=== PATIENT | female | born 1975 | race Caucasian/White ===

== ENCOUNTER → 2016-10-19 | Outpatient (CLI) | payer BC ==
--- NOTE | 2016-10-19 14:13 | US ---
EXAMINATION TYPE: US pelvis complete transvag DATE OF EXAM: 10/19/2016 COMPARISON: NONE CLINICAL HISTORY: N92.1 MENORRHAGIA. Patient has blood clots the week following her cycles, ongoing f or years TECHNIQUE: TA and TV Date of LMP: 10/08/2016 EXAM MEASUREMENTS: Uterus: 7.0 x 5.2 x 5.5 cm Endometrial Stripe: 1.0 cm Right Ovary: 2.9 x 2.3 x 2.2 cm Left Ovary: 2.4 x 2.6 x 2.0 cm 1. Uterus: Retroverted nabothian cyst within cervix 2. Endometrium: wnl 3. Right Ovary: wnl 4. Left Ovary: 2.3cm simple appearing follicle with mild free fluid adjacent to left ovary. 5. Bilateral Adnexa: wnl 6. Posterior cul-de-sac: wnl IMPRESSION: 1. Unremarkable endometrium, uterus, and right ovary. 2. Dominant anechoic left ovarian follicle with small volume paraovarian free fluid, which may relate to a recently ruptured ovarian cyst.
== END | disposition home or self-care (01) ==
LOC: RADUSWWP 13:29
PROVIDERS: ATTEND Obstetrics & Gynecology
DX: N92.1 Excessive and frequent menstruation with irregular cycle (principal)
CPT/HCPCS: 76830; 76856

== ENCOUNTER → 2016-10-23 | Outpatient (CLI) | payer BC | END | disposition home or self-care (01) | LOC: LABWHC1 08:28 | PROVIDERS: ATTEND Obstetrics & Gynecology | DX: Z13.220 Encounter for screening for lipoid disorders (principal); Z13.1 Encounter for screening for diabetes mellitus | CPT/HCPCS: 36415; 80061; 82947; 84439; 84443 ==

== ENCOUNTER → 2016-10-26 | Outpatient (CLI) | payer BC ==
--- NOTE | 2016-10-26 10:28 | MM ---
Reason for exam: screening (asymptomatic). Baseline mammogram. History: Family history of breast cancer in mother at age 40, breast cancer in 2 aunts, and breast cancer in grandmother at age 20. Physical Findings: Nurse did not find any significant physical abnormalities on exam. MG Screening Mammo w CAD Bilateral CC and MLO view(s) were taken. The breast tissue is heterogeneously dense. This may lower the sensitivity of mammography. No suspicious abnormality. These results were verbally communicated with the patient and result sheet given to the patient on 10/26/16. ASSESSMENT: Negative, BI-RAD 1 RECOMMENDATION: Routine screening mammogram of both breasts in 1 year.
== END | disposition home or self-care (01) ==
LOC: RADMAMWWP 09:41
PROVIDERS: ATTEND Obstetrics & Gynecology
DX: Z12.31 Encounter for screening mammogram for malignant neoplasm of breast (principal)

== ENCOUNTER → 2020-12-09 | Outpatient (CLI) | payer BC ==
[2020-12-09 16:48] LABS: Basophils # (A) 0.1 k/uL (0-0.2); Basophils % (A) 1 %; Eosinophils # (A) 0.1 k/uL (0-0.7); Eosinophils % (A) 2 %; HCT 40.8 % (34.0-46.0); HGB 13.7 gm/dL (11.4-16.0); Lymphocytes # (A) 2.4 k/uL (1.0-4.8); Lymphocytes % (A) 34 %; MCH 31.2 pg (25.0-35.0); MCHC 33.5 g/dL (31.0-37.0); Monocytes # (A) 0.4 k/uL (0-1.0); Monocytes % (A) 5 %; Neutrophils # (A) 4.2 k/uL (1.3-7.7); Neutrophils % (A) 58 %; Platelet Count 295 k/uL (150-450); RBC 4.39 m/uL (3.80-5.40); RDW 12.2 % (11.5-15.5); WBC 7.3 k/uL (3.8-10.6)
== END | disposition home or self-care (01) ==
LOC: LABPAT 16:08
PROVIDERS: ATTEND Obstetrics & Gynecology
DX: Z01.812 Encounter for preprocedural laboratory examination (principal)
CPT/HCPCS: 85025

== ENCOUNTER 2020-12-16 11:11 | Day surgery (SDC) | payer BC ==
[2020-12-14 16:14] VITALS: BMI 28.3
--- NOTE | 2020-12-15 16:57 | P.HPOB ---
History of Present Illness H&P Date: 12/15/20 Chief Complaint: Menorrhagia with regular cycle This is a 45 y.o. female, 3, para 2, who presents for dilatation and curettage with hysteroscopy and Novasure endometrial ablation due to menorrhagia with regular cycle. Her menses are occurring every 25-26 days and lasting 5-7 days heavy followed by a week of spotting. She also has severe cramping the 1st day or 2 of her cycle. Her ultrasound shows uterus measuring 7.6 x 4.8 cm with an endometrial thickness of 0.9 cm. There was also a possible 0.9 cm fibroid. Both ovaries appeared normal with small simple cysts. OB Hx: . History of 2 sections and 1 miscarriage. Poem Writer Hx: History of trichomonas, treated in past. History of tubal ligation. Social Hx: . Works as a [employer] for [employer]. Review of Systems Constitutional: Reports night sweats, Denies chills, Denies fever Eyes: denies blurred vision, denies pain Ears, nose, mouth and throat: Denies sore throat Breasts: bilateral: pain (nipple pain since last delivery) Cardiovascular: Denies chest pain, Denies shortness of breath Respiratory: Denies cough Gastrointestinal: Reports heartburn, Denies abdominal pain, Denies diarrhea, Denies nausea, Denies vomiting Genitourinary: Reports dysmenorrhea, Reports menorrhagia Menstruation: Reports menses 8 or > days, Reports period heavy Musculoskeletal: Reports low back pain, Reports myalgias Integumentary: Denies pruritus, Denies rash Neurological: Reports headaches (with menses), Denies numbness, Denies weakness Psychiatric: Reports anxiety, Reports mood swings Endocrine: Reports flushing Past Medical History Past Medical History: GERD/Reflux, Musculoskeletal Disorder Additional Past Medical History / Comment(s): Hx Scoliosis. History of Any Multi-Drug Resistant Organisms: None Reported Past Surgical History: Back Surgery, Section Additional Past Surgical History / Comment(s): Section X2. Fusion - 2 Joaquin rods 1990. Past Anesthesia/Blood Transfusion Reactions: No Reported Reaction, Motion Sickness Past Psychological History: No Psychological Hx Reported Smoking Status: Former smoker Past Alcohol Use History: Occasional Additional Past Alcohol Use History / Comment(s): Quit smoking in 2003. Past Drug Use History: None Reported - Past Family History Father Family Medical History: CVA/TIA Medications and Allergies Home Medications Medication Instructions Recorded Confirmed Type No Known Home Medications 12/14/20 12/14/20 History Allergies Allergy/AdvReac Type Severity Reaction Status Date / Time metronidazole [From Flagyl] Allergy Thrush Verified 12/14/20 16:17 Penicillins Allergy Rash/Hives Verified 12/14/20 16:17 Exam Osteopathic Statement: *. No significant issues noted on an osteopathic structural exam other than those noted in the History and Physical/Consult. HEENT: within normal limits Heart: regular rate and rhythm Lungs: clear to auscultation bilaterally Abdomen: soft, non-tender Pelvic: uterus small anteverted, sl. tender with no adnexal masses. Mild tenderness bilaterally. Extremities: neg. Adrian's Assessment and Plan (1) Menorrhagia with regular cycle Status: Acute Code(s): N92.0 - EXCESSIVE AND FREQUENT MENSTRUATION WITH REGULAR CYCLE SNOMED Code(s): 399531992 Plan: Proceed with dilatation and curettage with hysteroscopy and Novasure endometrial ablation. I have discussed the risks, benefits, and alternative therapies for the above- mentioned procedure and for both sedation/anesthesia as well as necessary blood products administration, if indicated, as they pertain to this patient. The patient has indicated her understanding and acceptance of the risks and procedures discussed.
[~2020-12-16 11:11] MED LIST: DEXAMETHASONE SOD PHOSPHATE 4 MG/ML 1 ML VIAL IV ONE; HYDROmorphone 0.5 MG/0.5 ML SYRINGE IVP PRN; LACTATED RINGERS 1,000 ML IV SCH; MIDAZOLAM 2 MG/2 ML VIAL IV PRN; ONDANSETRON 4 MG/2 ML VIAL IVP ONE; Pre Op ABX Message 1 EACH MISC MISCELLANE ONE; SCOPOLAMINE 1.5MG/72HR PATCH TRANSDERM ONE
[2020-12-16 11:40] VITALS: RESP 16
[2020-12-16] MEDS ORDERED: LIDOCAINE 1% INJ 10MG/ML (20 ML MDV) ONE (12:35)
[2020-12-16] MEDS ORDERED: MIDAZOLAM 2 MG/2 ML VIAL ONE (12:35)
[2020-12-16] MEDS ORDERED: fentaNYL (PF) 50 MCG/ML 2 ML AMP ONE (12:35)
[2020-12-16] MEDS ORDERED: PROPOFOL 10 MG/ML 20 ML VIAL IV ONE (12:35)
--- NOTE | 2020-12-16 13:02 | P.OP ---
Date of Procedure: 12/16/20 Preoperative Diagnosis: Menorrhagia with regular cycle Postoperative Diagnosis: Same Procedure(s) Performed: Dilation and curettage with hysteroscopy and NovaSure endometrial ablation Anesthesia: CALEB Surgeon: Vickie Javier Estimated Blood Loss (ml): 10 Pathology: other (Endometrial curettings) Condition: stable Disposition: same day Indications for Procedure: This is a 45 y.o. female, 3, para 2, who presents for dilatation and curettage with hysteroscopy and Novasure endometrial ablation due to menorrhagia with regular cycle. Her menses are occurring every 25-26 days and lasting 5-7 days heavy followed by a week of spotting. She also has severe cramping the 1st day or 2 of her cycle. Her ultrasound shows uterus measuring 7.6 x 4.8 cm with an endometrial thickness of 0.9 cm. There was also a possible 0.9 cm fibroid. Both ovaries appeared normal with small simple cysts. Operative Findings: Uterus is retroverted and sounded to 7-1/2 cm. Cervix is sounded to 3 cm. No adnexal masses are palpated. Upon hysteroscopy, some bloody discharge is noted in both tubal ostia are visualized. Upon curetting, irregular contour is noted consistent with possible submucosal fibroids. Moderate amount of endometrial curettings are obtained. Description of Procedure: The patient is taken to the operating room. She is placed in the dorsal lithotomy position after general anesthesia was given. She is prepped and draped in the normal sterile fashion. Bladder is drained with a catheter and then removed. Pelvic exam is performed under anesthesia. Uterus is found to be retroverted with no adnexal masses. She is placed in slight Trendelenburg position. A right angle retractor is used to visualize the cervix. The anterior lip of the cervix is grasped with a single-tooth tenaculum. Cervix is sounded to 3 cm. Uterus is sounded to 7 cm. Cervix is gently dilated with Duvall dilators until a hysteroscope could be passed. Hysteroscopy is performed using normal saline. The above noted findings are noted. Next a polyp forceps is introduced. A moderate amount of tissue was obtained. Next medium-sized size sharp curette was placed. A moderate amount of endometrial curettings were obtained. Next NovaSure array was inserted into the endometrial cavity. Length was set at 4.5 cm and width was determined to be 3.3 cm. Next cavity assessment was completed and passed on the first try. Next NovaSure array was fired at 82 W for 69 seconds. Next the array was removed, inspected and then discarded. Next the hysteroscope was reinserted. Uniform charring was noted. Pictures were taken. Hysteroscope was removed. Single-tooth tenaculum was removed from the anterior lip of the cervix. Minimal bleeding was noted. All other instruments removed from the vagina. Sponge counts were correct. Patient is taken to recovery room in stable condition.
[2020-12-16 13:20] VITALS: TEMP 97.1
[2020-12-16 14:04] VITALS: BP 111/78; PULSE 60
== END 2020-12-16 14:37 | disposition home or self-care (01) ==
LOC: OR 11:11
PROVIDERS: ATTEND Obstetrics & Gynecology
DX: N92.0 Excessive and frequent menstruation with regular cycle (principal); K21.9 Gastro-esophageal reflux disease without esophagitis; Z87.891 Personal history of nicotine dependence
CPT/HCPCS: 58563; 81025; 88305; J2250; J1100; J2405; J2001; J3010; J2704

== ENCOUNTER → 2020-12-30 | Outpatient (CLI) | payer BC ==
--- NOTE | 2021-01-02 13:52 | MM ---
Reason for exam: screening (asymptomatic). Last mammogram was performed 4 years and 2 months ago. History: Family history of breast cancer in mother at age 40, breast cancer in 2 aunts, and breast cancer in grandmother at age 20. Physical Findings: A clinical breast exam by your physician is recommended on an annual basis and results should be correlated with mammographic findings. MG 3D Screening Mammo W/Cad Bilateral CC and MLO view(s) were taken. Prior study comparison: October 26, 2016, bilateral MG screening mammo w CAD. The breast tissue is heterogeneously dense. This may lower the sensitivity of mammography. 3.3cm oval, circumscribed mass/cyst 10 o'clock posterior right breast. Inferior right nodularity on 3D images. ASSESSMENT: Incomplete: need additional imaging evaluation, BI-RAD 0 RECOMMENDATION: Special view mammogram of the right breast. (3D) Ultrasound of both breasts. [facility] will attempt to contact patient to return for supplemental views and ultrasound.
== END | disposition home or self-care (01) ==
LOC: RADMAMWWP 14:35
PROVIDERS: ATTEND Obstetrics & Gynecology
DX: Z12.31 Encounter for screening mammogram for malignant neoplasm of breast (principal); Z80.3 Family history of malignant neoplasm of breast
CPT/HCPCS: 77063; 77067

== ENCOUNTER → 2021-01-13 | Outpatient (CLI) | payer BC ==
--- NOTE | 2021-01-13 10:49 | USB ---
EXAMINATION TYPE: US breast workup complete JOHN DATE OF EXAM: 01/13/2021 COMPARISON: Mammogram same date, 12/30/2020, 10/26/2016 CLINICAL HISTORY: R92.8 ABN MAMMO. Findings: Multiple simple cysts are identified in both breasts with the largest in the right breast measuring u p to 2.7 cm corresponding to the larger mass on mammogram. IMPRESSION: Simple cysts are noted in the bilateral breasts. BI-RADS 2, benign. Recommendation: Screening mammogram is recommended in December 2021.
--- NOTE | 2021-01-13 14:30 | MM ---
Reason for exam: additional evaluation requested from abnormal screening. Last mammogram was performed less than 1 month ago. History: Family history of breast cancer in mother at age 40, breast cancer in 2 aunts, and breast cancer in grandmother at age 20. Physical Findings: Nurse did not find any significant physical abnormalities on exam. MG 3D Work Up W/Cad RT LM and spot compression MLO view(s) were taken of the right breast. Prior study comparison: December 30, 2020, bilateral MG 3d screening mammo w/cad. October 26, 2016, bilateral MG screening mammo w CAD. The breast tissue is heterogeneously dense. This may lower the sensitivity of mammography. There is a large ovoid mass upper right breast and nodularity of the lower right breast. Bilateral ultrasound recommended, as per prior report. These results were verbally communicated with the patient and result sheet given to the patient on 01/13/21. ASSESSMENT: Incomplete: need additional imaging evaluation, BI-RAD 0 RECOMMENDATION: Ultrasound of both breasts. EDMUND
== END | disposition home or self-care (01) ==
LOC: RADMAMWWP 08:19
PROVIDERS: ATTEND Obstetrics & Gynecology
DX: N60.01 Solitary cyst of right breast (principal); N60.02 Solitary cyst of left breast; N63.10 Unspecified lump in the right breast, unspecified quadrant; Z80.3 Family history of malignant neoplasm of breast
CPT/HCPCS: 77061; 77065

== ENCOUNTER → 2023-01-30 | Outpatient (CLI) | payer BC ==
--- NOTE | 2023-01-31 08:16 | MM ---
Reason for Exam: Screening (asymptomatic). Last mammogram was performed 2 year(s) and 1 month(s) ago. Patient History: Menarche at age 13. First Full-Term at age 27. Perimenopausal. Maternal grandmother had breast cancer, age 20. Maternal aunt had breast cancer. Maternal aunt had breast cancer. Mother had breast cancer, age 40. Risk Values: Cristina 5 year model risk: 1.8%. NCI Lifetime model risk: 19.6%. Prior Study Comparison: 10/26/2016 Bilateral Screening Mammogram, [facility]. 12/30/2020 Bilateral Screening Mammogram, [facility]. 01/13/2021 Right Diagnostic Mammogram, [facility]. Tissue Density: The breast tissue is extremely dense which could obscure a lesion on mammography. Findings: Analyzed By CAD. Well-circumscribed mass at the 9 to 10:00 position left breast. Additional views and ultrasound recommended. No right-sided breast mass is seen. Benign calcifications noted. Overall Assessment: Incomplete: need additional imaging evaluation, BI-RAD 0 Management: Diagnostic Mammogram of the left breast. . Patient should continue monthly self-breast exams. A clinical breast exam by your physician is recommended on an annual basis. This exam should not preclude additional follow-up of suspicious palpable abnormalities. Note on Cristina scores and lifetime risk: 1. A Cristina score greater than 3% is considered moderate risk. If this is the case, consider specialist referral to assess eligibility for a risk reducing agent. 2. If overall lifetime risk for the development of breast cancer is 20% or higher, the patient may qualify for future screening with alternating mammogram and breast MRI. Electronically signed and approved by: Eduardo Hudson M.D. Radiologis
== END | disposition home or self-care (01) ==
LOC: RADMAMWWP 15:13
PROVIDERS: ATTEND Obstetrics & Gynecology
DX: Z12.31 Encounter for screening mammogram for malignant neoplasm of breast (principal); Z80.3 Family history of malignant neoplasm of breast
CPT/HCPCS: 77063; 77067

== ENCOUNTER → 2023-02-06 | Outpatient (CLI) | payer BC ==
--- NOTE | 2023-02-06 15:24 | USB ---
Reason for Exam: Additional evaluation requested from abnormal screening. Patient History: Menarche at age 13. First Full-Term at age 27. Perimenopausal. Maternal grandmother had breast cancer, age 20. Maternal aunt had breast cancer. Maternal aunt had breast cancer. Mother had breast cancer, age 40. Risk Values: Cristina 5 year model risk: 1.8%. NCI Lifetime model risk: 19.6%. Technique: Method: Targeted. Prior Study Comparison: 12/30/2020 Bilateral Screening Mammogram, [facility]. 01/13/2021 Right Diagnostic Mammogram, [facility]. 01/30/2023 Bilateral MG 3D screening mammo w/cad, [facility]. Findings: The whole breast of the left breast, the lateral section of the breast of the right breast, the axilla of both breasts and the retroareolar of both breasts were scanned. Right breast: At the 9:00 position 8 cm nipple is a 0.5 x 0.6 x 0.7 cm cyst with good through transmission smooth umanzor. Wall enhancement. This area appears to correlate with the right breast mammogram. There is an additional 1.6 x 1.2 x 1.5 cm cyst at the 10:00 position 2 cm from. Left breast: At the 12:00 position 2 cm from the nipple there is a 2.2 x 1.1 x 2.3 cm cyst. Correlation with mammographic findings is not evident. At the 1:00 position 8 cm is a 0.5 x 0.4 1.0 cm complex cystic area. This may correlate with the more posterior lesion on mammogram. At the 3:00 position 3 cm from nipple is a 0.9 x 1.4 x 0.7 cm area may correlate with the mammographic finding. At 7:00 position 3 cm from the nipple is a small simple appearing cyst. At the 9:00 position 5 cm from the nipple is a 1.7 x 1.3 x 1.6 cm simple appearing cyst. Overall Assessment: Probably benign, BI-RAD 3 Management: Diagnostic Mammogram of the left breast in 6 months. A clinical breast exam by your physician is recommended on an annual basis and results should be correlated with mammographic findings. This exam should not preclude additional follow-up of suspicious palpable abnormalities. Results were given to the patient verbally at the time of exam. Electronically signed and approved by: John Gonsales D.O. Radiologis
--- NOTE | 2023-02-12 14:54 | MM ---
Reason for Exam: Additional evaluation requested from abnormal screening. Last screening mammogram was performed less than 1 month ago. Patient History: Menarche at age 13. First Full-Term at age 27. Perimenopausal. Maternal grandmother had breast cancer, age 20. Maternal aunt had breast cancer. Maternal aunt had breast cancer. Mother had breast cancer, age 40. Risk Values: Cristina 5 year model risk: 1.8%. NCI Lifetime model risk: 19.6%. Prior Study Comparison: 12/30/2020 Bilateral Screening Mammogram, [facility]. 01/13/2021 Right Diagnostic Mammogram, [facility]. 01/30/2023 Bilateral MG 3D screening mammo w/cad, [facility]. Tissue Density: Left: The breast tissue is extremely dense which could obscure a lesion on mammography. Findings: Analyzed By CAD. Pattern appears stable. There is a persistent nodular density within the medial left breast. Additional workup with ultrasound is recommended. Overall Assessment: Incomplete: need additional imaging evaluation, BI-RAD 0 Management: Diagnostic Breast Ultrasound of the left breast. A negative mammogram report should not preclude additional follow up of suspicious palpable abnormalities. Patient should continue monthly self breast exam. A clinical breast exam by your physician is recommended on an annual basis and results should be correlated with mammographic findings. Electronically signed and approved by: John Gonsales D.O. Radiologis
== END | disposition home or self-care (01) ==
LOC: RADMAMWWP 13:42
PROVIDERS: ATTEND Obstetrics & Gynecology
DX: R92.312 Mammographic fatty tissue density, left breast (principal); Z80.3 Family history of malignant neoplasm of breast
CPT/HCPCS: 77061; 77065

== ENCOUNTER → 2023-09-18 | Outpatient (CLI) | payer BC ==
--- NOTE | 2023-09-18 10:30 | MM ---
Reason for Exam: Follow-up at short interval from prior study. Last screening mammogram was performed 8 month(s) ago. Patient History: Menarche at age 13. First Full-Term at age 27. Perimenopausal. Maternal grandmother had breast cancer, age 20. Maternal aunt had breast cancer. Maternal aunt had breast cancer. Mother had breast cancer, age 40. Risk Values: Cristina 5 year model risk: 1.8%. NCI Lifetime model risk: 19.3%. Prior Study Comparison: 01/13/2021 Right Diagnostic Mammogram, [facility]. 01/30/2023 Bilateral MG 3D screening mammo w/cad, [facility]. 02/06/2023 Left MG 3D work up w/cad , [facility]. Tissue Density: Left: The breasts are extremely dense, which lowers the sensitivity of mammography. Findings: Analyzed By CAD. Pattern appears stable. Previous rounded density in the anterior left breast on is significantly diminished in size or resolved. Stable appearance of focal asymmetry within the posterior left breast. No suspicious new change is evident. No suspicious groups of microcalcifications, spiculated or lobular masses, architectural distortion or other secondary signs of malignancy are mammographically apparent. Overall Assessment: Probably benign, BI-RAD 3 Management: Diagnostic Mammogram of both breasts in 6 months. A negative mammogram report should not preclude additional follow up of suspicious palpable abnormalities. Patient should continue monthly self breast exam. A clinical breast exam by your physician is recommended on an annual basis and results should be correlated with mammographic findings. Note on Cristina scores and lifetime risk: 1. A Cristina score greater than 3% is considered moderate risk. If this is the case, consider specialist referral to assess eligibility for a risk reducing agent. 2. If overall lifetime risk for the development of breast cancer is 20% or higher, the patient may qualify for future screening with alternating mammogram and breast MRI. Electronically signed and approved by: John Gonsales D.O. Radiologis
== END | disposition home or self-care (01) ==
LOC: RADMAMWWP 10:00
PROVIDERS: ATTEND Obstetrics & Gynecology
DX: R92.8 Other abnormal and inconclusive findings on diagnostic imaging of breast (principal); R92.342 Mammographic extreme density, left breast; Z80.3 Family history of malignant neoplasm of breast
CPT/HCPCS: 77061; 77065

== ENCOUNTER → 2024-09-14 | Outpatient (CLI) | payer BC ==
--- NOTE | 2024-09-14 12:36 | MM ---
Reason for Exam: Follow-up at short interval from prior study. Last mammogram was performed 1 year(s) and 8 month(s) ago. Patient History: Menarche at age 13. First Full-Term at age 27. Perimenopausal. Maternal grandmother had breast cancer, age 20. Maternal aunt had breast cancer. Maternal aunt had breast cancer. Mother had breast cancer, age 40. Risk Values: Cristina 5 year model risk: 1.9%. NCI Lifetime model risk: 19.1%. Prior Study Comparison: 12/30/2020 Bilateral Screening Mammogram, [facility]. 01/13/2021 Right Diagnostic Mammogram, [facility]. 01/13/2021 Bilateral Diagnostic Ultrasound, [facility]. 01/30/2023 Bilateral MG 3D screening mammo w/cad, [facility]. 02/06/2023 Bilateral US breast workup limited JOHN, [facility]. 02/06/2023 Left MG 3D work up w/cad LT, [facility]. 09/18/2023 Left MG 3D diag mammo w/cad LT, [facility]. Tissue Density: The breasts are extremely dense, which lowers the sensitivity of mammography. Findings: Analyzed By CAD. Waxing and waning nodules are seen compatible with cysts. No suspicious masses seen. Overall Assessment: Benign, BI-RAD 2 Management: Screening Mammogram of both breasts in 1 year. . Results were given to the patient verbally at the time of exam. Patient should continue monthly self-breast exams. A clinical breast exam by your physician is recommended on an annual basis. This exam should not preclude additional follow-up of suspicious palpable abnormalities. Note on Cristina scores and lifetime risk: 1. A Cristina score greater than 3% is considered moderate risk. If this is the case, consider specialist referral to assess eligibility for a risk reducing agent. 2. If overall lifetime risk for the development of breast cancer is 20% or higher, the patient may qualify for future screening with alternating mammogram and breast MRI. [facility], , 09/14/2024 11:48 AM. Electronically signed and approved by: Eduardo Hudson M.D. Radiologis
== END | disposition home or self-care (01) ==
LOC: RADMAMWWP 11:25
PROVIDERS: ATTEND Physician Assistant
DX: R92.8 Other abnormal and inconclusive findings on diagnostic imaging of breast (principal); N64.4 Mastodynia; R92.343 Mammographic extreme density, bilateral breasts; Z80.3 Family history of malignant neoplasm of breast
CPT/HCPCS: 77062; 77066